=== PATIENT | male | born 1965 | race Caucasian/White ===

== ENCOUNTER 2025-06-01 06:25 | Day surgery (SDC) | payer BC, SELFPAY | END 2025-06-01 14:25 | disposition home or self-care (01) | LOC: GI 06:25 | PROVIDERS: ATTENDING PHYSICIAN Student in an Organized Health Care Education/Training Program | DX: K62.5 Hemorrhage of anus and rectum (principal); K64.8 Other hemorrhoids; K64.4 Residual hemorrhoidal skin tags; K57.30 Diverticulosis of large intestine without perforation or abscess without bleeding; R19.4 Change in bowel habit; D12.8 Benign neoplasm of rectum | CPT/HCPCS: 45385; 88305 ==

== ENCOUNTER → 2025-08-08 07:06 | Outpatient (REF) | payer BC, SELFPAY | LOC: MRI 07:06 | PROVIDERS: ATTENDING PHYSICIAN Nurse Practitioner; FAMILY PHYSICIAN Internal Medicine | DX: R20.8 Other disturbances of skin sensation (principal) | CPT/HCPCS: 72148 ==

== ENCOUNTER 2025-08-17 06:26 | Day surgery (SDC) | payer BC, SELFPAY | END 2025-08-17 08:56 | disposition home or self-care (01) | LOC: GI 06:26 | PROVIDERS: ATTENDING PHYSICIAN Student in an Organized Health Care Education/Training Program; FAMILY PHYSICIAN Internal Medicine | DX: Z12.11 Encounter for screening for malignant neoplasm of colon (principal); K64.8 Other hemorrhoids; K57.30 Diverticulosis of large intestine without perforation or abscess without bleeding; Z86.0101 Personal history of adenomatous and serrated colon polyps | CPT/HCPCS: G0105 ==